=== PATIENT | male | born 2000 | race Asian ===

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

== ENCOUNTER 2018-07-02 02:15 | Emergency (ER) | payer MEDICAID, OTHER ==
[~2018-07-02] VITALS: Ht 177.8 cm; Wt 81.8 kg
[~2018-07-02 02:15] MED LIST: BENZ1TAB10 PO; DIVA-78 PO; OMEP20 PO; RISP3 PO
[2018-07-02] MEDS ORDERED: OLAN7.5T2 PO (02:57)
[2018-07-02 03:29] LABS: BASOPHILS % (AUTO) 0.5 % (0.0-2.0); EOSINOPHILS % (AUTO) 3.2 % (1.0-6.0); HEMATOCRIT 50.8 % (41-53); HEMOGLOBIN 17.3 g/dL (13.5-17.5); LYMPHOCYTES # (AUTO) 1.9 K/uL (1.0-4.8); LYMPHOCYTES % (AUTO) 30.7 % (22.0-44.0); MEAN CORPUSCULAR HEMOGLOBIN 29.6 pg (26.0-34.0); MEAN CORPUSCULAR HGB CONC 34.1 G/dL (31.0-37.0); MEAN CORPUSCULAR VOLUME 87 fL (80-100); MONOCYTES # (AUTO) 0.5 K/uL (0.1-1.0); MONOCYTES % (AUTO) 8.7 % (2.0-9.0); NEUTROPHILS # (AUTO) 3.6 K/uL (1.8-7.7); NEUTROPHILS % (AUTO) 56.9 % (40.0-70.0); PLATELET COUNT (AUTO) 210 K/uL (150-450); RED BLOOD CELL COUNT(AUTO) 5.86 MIL/uL (4.50-5.90)
[2018-07-02 03:42] LABS: ANION GAP 11 mmol/L (8-16); CALCIUM, TOTAL 9.7 mg/dL (8.8-10.5); CARBON DIOXIDE 26 mmol/L (22-29); CHLORIDE 102 mmol/L (98-107); CREATININE 0.97 mg/dL (0.60-1.30); GLOMERULAR FILTR. RATE CALC > 60 mL/min (>60); GLUCOSE,RANDOM 99 mg/dL (70-110); POTASSIUM 3.3 mmol/L (3.5-5.1); SODIUM SERUM 139 mmol/L (136-145); UREA NITROGEN, BLOOD 14 mg/dL (7-18)
[2018-07-02 03:49] LABS: ALANINE AMINOTRANSFERASE 14 U/L (12-78); ALBUMIN 4.3 g/dL (3.4-5.0); ALKALINE PHOSPHATASE 83 U/L (46-116); ASPARTATE AMINOTRANSFERASE 19 U/L (15-37); BILIRUBIN,TOTAL 0.7 mg/dL (0.1-1.0); TOTAL PROTEIN, SERUM 8.1 g/dL (6.4-8.2)
[2018-07-02 03:51] LABS: VALPROIC ACID < 3 mcg/mL (50-100)
[2018-07-02 05:39] LABS: AMPHET/METH SCREEN,URINE NEGATIVE (NEGATIVE); BARBITURATE SCREEN, URINE NEGATIVE (NEGATIVE); BENZODIAZEPINES SCREEN,URINE NEGATIVE (NEGATIVE); CANNABINOID SCREEN,URINE POSITIVE (NEGATIVE); COCAINE SCREEN,URINE NEGATIVE (NEGATIVE); METHADONE SCREEN, URINE NEGATIVE (NEGATIVE); OPIATE SCREEN,URINE NEGATIVE (NEGATIVE)
[2018-07-02 05:43] LABS: PHENCYCLIDINE SCREEN,URINE NEGATIVE (NEGATIVE)
[2018-07-02 06:30] VITALS: BP 120/72
== END 2018-07-02 09:08 | disposition home or self-care (01) ==
LOC: EMS 02:15
DX: R44.0 Auditory hallucinations (principal); R44.1 Visual hallucinations; F32.9 Major depressive disorder, single episode, unspecified; F22 Delusional disorders; F20.9 Schizophrenia, unspecified; F12.90 Cannabis use, unspecified, uncomplicated
CPT/HCPCS: 36415; 80053; 80164; 80307; 85025; 99284; G0480

== ENCOUNTER 2025-05-20 20:42 | Inpatient (IN) | payer MEDICAID, OTHER ==
[~2025-05-20] VITALS: Ht 177.8 cm; Wt 102.0 kg
[~2025-05-20 20:42] MED LIST changes: -BENZ1TAB10 PO; +BUPR-50 PO; -DIVA-78 PO; +ESCI20TA87 PO; +HYDR-4808 PO; -OMEP20 PO; -RISP3 PO; +RISP4TAB94 PO
[2025-05-20 22:21] LABS: PLATELET COUNT (AUTO) 221 K/uL (150-450); RED BLOOD CELL COUNT(AUTO) 5.52 MIL/uL (4.50-5.90); RED CELL DISTRIBUTION WIDTH 13.9 % (11.5-14.5); WHITE BLOOD COUNT (AUTO) 8.1 K/uL (4.5-11.0)
[2025-05-20 22:27] LABS: CALCIUM, TOTAL 8.8 mg/dL (8.8-10.5); CREATININE 0.93 mg/dL (0.60-1.30); GLOMERULAR FILTR. RATE CALC > 60 mL/min (>60); GLUCOSE,RANDOM 114 mg/dL (70-110); SODIUM SERUM 139 mmol/L (136-145); UREA NITROGEN, BLOOD 12 mg/dL (7-18)
[2025-05-21 00:55] LABS: COVID AG,FIA SOURCE NASAL SWAB
[2025-05-21 01:01] LABS: SARS-COV2 (COVID) ANTIGEN,FIA Negative (Negative)
[2025-05-21 02:58] LABS: APPEARANCE,URINE CLEAR (CLEAR); GLUCOSE, URINE (UA) NEGATIVE (NEGATIVE); LEUKOCYTE ESTERASE ,URINE NEGATIVE (NEGATIVE); NITRATE,URINE NEGATIVE (NEGATIVE); OCCULT BLOOD,URINE NEGATIVE (NEGATIVE); PH,URINE DRUG SCREEN 6.0 (5.0-8.0); SPECIFIC GRAVITIY, URINE 1.020 (1.003-1.030)
[2025-05-21 03:04] LABS: ALCOHOL, URINE DRUG SCREEN NEGATIVE (NEGATIVE); AMPHET/METH SCREEN,URINE NEGATIVE (NEGATIVE); BARBITURATE SCREEN, URINE NEGATIVE (NEGATIVE); CANNABINOID SCREEN,URINE NEGATIVE (NEGATIVE); COCAINE SCREEN,URINE NEGATIVE (NEGATIVE); METHADONE SCREEN, URINE NEGATIVE (NEGATIVE)
[2025-05-21] MEDS: POTASSIUM CHLORIDE 20 MEQ ER TABLET PO ONE (03:10)
[2025-05-21] MEDS ORDERED: ZOLPIDEM TARTRATE 10 MG TABLET PO PRN (03:30)
[2025-05-21] MEDS ORDERED: DOCUSATE SODIUM 100 MG CAPSULE PO PRN (06:45)
[2025-05-21] MEDS ORDERED: MAGNESIUM HYDROXIDE SUSPENSION 30 ML UDCUP PO PRN (06:45)
[2025-05-21] MEDS ORDERED: GuaiFENesin/D-METHORPHAN [SUGAR-FREE] 200-20MG/10 ML SYRUP UDCUP PO PRN (06:45)
[2025-05-21] MEDS ORDERED: ONDANSETRON 4 MG TABLET PO PRN (06:45)
[2025-05-21] MEDS ORDERED: LOPERAMIDE HCL 2 MG CAPSULE PO PRN (06:45)
[2025-05-21] MEDS ORDERED: ALBUTEROL SULFATE HFA 90 MCG/PUFF 8 GM INHALER IH PRN (06:45)
[2025-05-21] MEDS ORDERED: MAG HYDROX/ALUMINUM HYD/SIMETH ES 30 ML SUSPENSION UDCUP PO PRN (06:45)
[2025-05-21] MEDS ORDERED: PETROLATUM,WHITE 28 GM JELLY TP PRN (06:45)
[2025-05-21] MEDS ORDERED: IBUPROFEN 400 MG TABLET PO PRN (06:45)
[2025-05-21] MEDS ORDERED: NICOTINE 14 MG/24 HOUR PATCH TD PRN (06:45)
[2025-05-21] MEDS ORDERED: ACETAMINOPHEN 325 MG TABLET PO PRN (06:45)
[2025-05-21] MEDS ORDERED: ARIP10TA38 PO (11:06)
[2025-05-21 14:15] VITALS: O2SAT 100
[2025-05-21 17:31] VITALS: BP 114/76; PULSE 87; RESP 18; TEMP 97.4; O2SAT 97
[2025-05-21 23:03] VITALS: RESP 18
[2025-05-22 08:08] VITALS: BP 116/82; PULSE 97; RESP 18; TEMP 98; O2SAT 98
[2025-05-22 10:10] LABS: PLATELET COUNT (AUTO) 200 K/uL (150-450); RED BLOOD CELL COUNT(AUTO) 5.52 MIL/uL (4.50-5.90); RED CELL DISTRIBUTION WIDTH 13.8 % (11.5-14.5); WHITE BLOOD COUNT (AUTO) 5.9 K/uL (4.5-11.0)
[2025-05-22 10:34] LABS: ASPARTATE AMINOTRANSFERASE 20 U/L (15-37); CALCIUM, TOTAL 9.0 mg/dL (8.8-10.5); CHOL/HDL RATIO 2.7 (4.2-7.3); CREATININE 0.97 mg/dL (0.60-1.30); GLOMERULAR FILTR. RATE CALC > 60 mL/min (>60); GLUCOSE,RANDOM 106 mg/dL (70-110); LDL CHOL (CALC.) 56 mg/dL (0-130); SODIUM SERUM 142 mmol/L (136-145); TOTAL PROTEIN, SERUM 7.3 g/dL (6.4-8.2); UREA NITROGEN, BLOOD 13 mg/dL (7-18)
[2025-05-22] MEDS: LURASIDONE HCL 20 MG TABLET PO SCH (16:58)
[2025-05-22 20:14] VITALS: BP 121/77; PULSE 91; RESP 16; TEMP 97.8; O2SAT 99
[2025-05-23 08:41] VITALS: BP 118/79; PULSE 92; RESP 19; TEMP 97.9; O2SAT 100
[2025-05-23] MEDS ORDERED: LURA120T PO (13:20)
== END 2025-05-23 20:10 | disposition home or self-care (01) | DRG 753 ==
LOC: EMS 20:45 → B3A 05-21 14:20
PROVIDERS: ADMIT Psychiatry & Neurology Child & Adolescent Psychiatry; ATTEND Psychiatry & Neurology Child & Adolescent Psychiatry
PROC: GZ56ZZZ Individual Psychotherapy, Supportive (ICD-10-PCS; principal; 2025-05-22)
DX: F31.4 Bipolar disorder, current episode depressed, severe, without psychotic features (principal); R45.851 Suicidal ideations; Z20.822 Contact with and (suspected) exposure to COVID-19; E87.6 Hypokalemia; F20.9 Schizophrenia, unspecified; I10 Essential (primary) hypertension; F10.90 Alcohol use, unspecified, uncomplicated
CPT/HCPCS: 80048; 80053; 80061; 80307; 81003; 83036; 84443; 85025; 99285; G0480

== ENCOUNTER 2025-06-23 01:09 | Emergency (ER) | payer MEDICAID, OTHER ==
[~2025-06-23] VITALS: Ht 177.8 cm; Wt 104.5 kg
[~2025-06-23 01:09] MED LIST changes: -BUPR-50 PO; -ESCI20TA87 PO; -HYDR-4808 PO; +LURA120T PO; -RISP4TAB94 PO
[2025-06-23 01:17] VITALS: BP 135/99; PULSE 85; RESP 16; TEMP 97.8; O2SAT 98
[2025-06-23 01:46] LABS: COVID AG,FIA SOURCE NASAL SWAB
[2025-06-23 01:51] LABS: PLATELET COUNT (AUTO) 223 K/uL (150-450); RED BLOOD CELL COUNT(AUTO) 5.43 MIL/uL (4.50-5.90); RED CELL DISTRIBUTION WIDTH 13.9 % (11.5-14.5); WHITE BLOOD COUNT (AUTO) 6.8 K/uL (4.5-11.0)
[2025-06-23 01:52] LABS: APPEARANCE,URINE CLEAR (CLEAR); GLUCOSE, URINE (UA) NEGATIVE (NEGATIVE); LEUKOCYTE ESTERASE ,URINE NEGATIVE (NEGATIVE); NITRATE,URINE NEGATIVE (NEGATIVE); OCCULT BLOOD,URINE NEGATIVE (NEGATIVE); PH,URINE DRUG SCREEN 6.5 (5.0-8.0); SPECIFIC GRAVITIY, URINE 1.017 (1.003-1.030)
[2025-06-23 02:01] LABS: CALCIUM, TOTAL 8.9 mg/dL (8.8-10.5); CREATININE 1.05 mg/dL (0.60-1.30); GLOMERULAR FILTR. RATE CALC > 60 mL/min (>60); GLUCOSE,RANDOM 114 mg/dL (70-110); SODIUM SERUM 138 mmol/L (136-145); UREA NITROGEN, BLOOD 16 mg/dL (7-18)
[2025-06-23 02:08] LABS: SARS-COV2 (COVID) ANTIGEN,FIA Negative (Negative)
[2025-06-23 02:15] LABS: ALCOHOL, URINE DRUG SCREEN NEGATIVE (NEGATIVE); AMPHET/METH SCREEN,URINE NEGATIVE (NEGATIVE); BARBITURATE SCREEN, URINE NEGATIVE (NEGATIVE); CANNABINOID SCREEN,URINE NEGATIVE (NEGATIVE); COCAINE SCREEN,URINE NEGATIVE (NEGATIVE); METHADONE SCREEN, URINE NEGATIVE (NEGATIVE)
[2025-06-23] MEDS: LURASIDONE HCL 40 MG TABLET PO ONE (06:11)
[2025-06-25] MEDS ORDERED: QUET25TA PO (01:02)
[2025-06-25] MEDS ORDERED: LURA20TA PO (01:24)
[2025-06-25] MEDS ORDERED: PRAZ1 PO (01:24)
== END 2025-06-23 06:55 | disposition home or self-care (01) ==
LOC: EMS 04:23
DX: F31.9 Bipolar disorder, unspecified (principal); G47.00 Insomnia, unspecified; F20.9 Schizophrenia, unspecified; Z79.899 Other long term (current) drug therapy; Z20.822 Contact with and (suspected) exposure to COVID-19
CPT/HCPCS: 99284; 87426; 80048; 81003; 85025; 36415; 80307; G0480